=== PATIENT | male | born 1980 ===

== ENCOUNTER 2021-05-25 13:44 | Emergency (ER) | payer MEDICAID ==
[~2021-05-25] VITALS: Ht 185.4 cm; Wt 100.0 kg
[~2021-05-25 13:44] MED LIST: LIDOcaine 2% 5ml jelly ONE; etomidate 2mg/ml inj. ONE
[2021-05-25] MEDS ORDERED: LORazepam 2 mg/ml vial IV ONE (14:05)
[2021-05-25] MEDS ORDERED: LORazepam 2 mg/ml vial IM ONE (14:10)
[2021-05-25] MEDS ORDERED: normal saline 1000ml 1,000 ML IV ONE (14:35)
[2021-05-25] MEDS ORDERED: fentaNYL/PF 50MCG/1 ML 2ML syringe IV ONE ×2 (14:35→18:40)
[2021-05-25] MEDS ORDERED: haloperidol lactate 5mg/ml inj ONE (14:44)
[2021-05-25] MEDS ORDERED: haloperidol lactate 5mg/ml inj IM ONE ×2 (14:45→15:10)
[2021-05-25 14:51] LABS: BASOPHILS # (AUTO) 0.1 X10'3 (0-0.2); BASOPHILS % (AUTO) 0.6 % (0-1); EOSINOPHILS # (AUTO) 0.1 X10'3 (0-0.9); EOSINOPHILS % (AUTO) 0.3 % (0-6); HEMATOCRIT 42.3 % (42.0-52.0); HEMOGLOBIN 14.1 g/dl (14.0-17.9); LYMPHOCYTES # (AUTO) 2.3 X10'3 (1.1-4.8); LYMPHOCYTES % (AUTO) 11.5 % (21-51); MEAN CORPUSCULAR HEMOGLOBIN 30.3 PG (27.0-31.0); MEAN CORPUSCULAR HGB CONC 33.4 g/dL (33.0-36.5); MEAN CORPUSCULAR VOLUME 90.5 FL (78-98); MONOCYTES # (AUTO) 0.8 X10'3 (0-0.9); NEUTROPHILS % (AUTO) 83.6 % (42-75); PLATELET COUNT 492 X10'3 (140-440); RED BLOOD COUNT 4.67 X10'6 (4.70-6.10); RED CELL DISTRIBUTION WIDTH 12.5 % (11.5-14.5); WHITE BLOOD COUNT 20.3 X10'3 (4.5-11.0)
--- NOTE | 2021-05-25 15:00 | NUR ---
pt aggitated as evidenced by rapid speech and repeatedlty standing up and walking around the room. security at bedside
[2021-05-25 15:16] LABS: ALANINE AMINOTRANSFERASE 59 U/L (12-78); ALBUMIN 3.6 G/DL (3.4-5.0); ALBUMIN/GLOBULIN RATIO 0.8 (1.1-1.5); ALKALINE PHOSPHATASE 80 IU/L (46-116); ASPARTATE AMINO TRANSFERASE 41 U/L (10-37); BILIRUBIN,TOTAL 0.7 MG/DL (0.1-1.0); BLOOD UREA NITROGEN 17 MG/DL (7-18); BUN/CREATININE RATIO 16.3 (5.4-32.0); CALCIUM 9.1 MG/DL (8.5-10.1); CREATININE 1.04 MG/DL (0.60-1.10); ETHANOL < 0.010 GM/DL (0.0-0.010); GLUCOSE 206 MG/DL (70-104); LIPASE 70 U/L (73-393); TOTAL CARBON DIOXIDE 26.5 MMOL/L (24-32); eGFR 80 ML/MIN
--- NOTE | 2021-05-25 15:18 | NUR ---
pt being restrained by security and nurse given verbal order for 5 of haldol. pt combative and attempting to kick and hit staff
--- NOTE | 2021-05-25 15:22 | NUR ---
verbal order placed for [address] riddle
[2021-05-25 15:24] LABS: PLATELET ESTIMATE INCREASED; TOTAL CELLS COUNTED 100
[2021-05-25] MEDS ORDERED: ketamine 10mg/ml 20ml inj vial IV ONE (15:35)
[2021-05-25] MEDS ORDERED: ketamine 50 mg/ml 10ml vial IV ONE (15:45)
--- NOTE | 2021-05-25 17:50 | NUR ---
release period provided for 4 point restraint. unsure if patients mentation is behavioral or affected by previous substance use. pt continues to be agitated and restless despite both chemical and physical restraints. aware.
--- NOTE | 2021-05-25 17:57 | NUR ---
BEHAVIORAL RESTRAINT RELIEF/RELEASE AT [id number] AND REAPPILED
[2021-05-25] MEDS ORDERED: succinylcholine 20mg/ml inj IV ONE ×3 (18:21→18:25)
[2021-05-25] MEDS ORDERED: midazolam 1 mg/ML 2ml injection IV ONE (18:25)
[2021-05-25] MEDS ORDERED: midazolam 100mg in NS 100ml 100 ML IV PRN (18:25)
[2021-05-25] MEDS ORDERED: fentaNYL/PF 50MCG/1 ML 2ML syringe IV PRN (18:25)
[2021-05-25] MEDS ORDERED: FENTANYL CITRATE/D5W/PF 100 ML IV PRN (18:25)
[2021-05-25] MEDS ORDERED: etomidate 2mg/ml inj. IV ONE ×2 (18:25→18:38)
[2021-05-25] MEDS ORDERED: FENTANYL-0.9 % NACL/PF 100 ML IV PRN (18:33)
[2021-05-25 18:42] VITALS: BP 147/87
[2021-05-25] MEDS ORDERED: propofol 1000mg/100ml bottle 100 ML IV SCH (18:45)
[2021-05-25] MEDS ORDERED: propofol 1000mg/100ml bottle 100 ML IV ONE (18:51)
[2021-05-25 18:57] LABS: ANION GAP 10 (8-16); CHLORIDE 100 MMOL/L (99-107); POTASSIUM 3.6 MMOL/L (3.5-5.1); SODIUM 136 MMOL/L (135-145)
[2021-05-25 20:13] VITALS: BP 146/87
== END 2021-05-25 19:10 | disposition short-term general hospital (02) ==
LOC: ER 13:45
DX: S06.5X9A Traumatic subdural hemorrhage with loss of consciousness of unspecified duration, initial encounter (principal); S02.91XA Unspecified fracture of skull, initial encounter for closed fracture; V13.4XXA Pedal cycle driver injured in collision with car, pick-up truck or van in traffic accident, initial encounter; Y93.89 Activity, other specified; Y92.89 Other specified places as the place of occurrence of the external cause; Y99.8 Other external cause status
CPT/HCPCS: 31500; 36415; 70450; 71045; 80053; 80320; 82948; 83690; 85007; 85025; 96361; 96372; 96374; 96376; 99291; J0330; J1630; J2060; J2704; J3010; J3490; J7030; 94760; 96375